=== PATIENT | female | born 1995 | race Caucasian/White ===

== ENCOUNTER 2023-07-31 06:31 | Emergency (ER) | payer MEDICAID ==
[~2023-07-31] VITALS: Ht 160 cm; Wt 54.5 kg
[2023-07-31 07:04] VITALS: BP 141/84; PULSE 110; RESP 18; TEMP 98.7; O2SAT 99
== END 2023-07-31 08:31 | disposition left against medical advice (07) ==
LOC: ER 06:31
DX: H92.01 Otalgia, right ear (principal); Z53.21 Procedure and treatment not carried out due to patient leaving prior to being seen by health care provider
CPT/HCPCS: 99281